=== PATIENT | female | born 1990 | race Two or more races ===

== ENCOUNTER → 2016-05-20 | Outpatient (CLI) | payer OTHER ==
[2016-05-20 15:00] LABS: HEMOGLOBIN 13.2 gm/dL (12.0-16.0); MEAN CELL VOLUME 83.4 FL (83-96); MEAN CORPUSCULAR HEMOGLOBIN 28.2 PG (28-34); MEAN CORPUSCULAR HGB CONC 33.8 g/dL (30-36); MEAN PLATELET VOLUME 9.7 FL (6.5-11.5); RED BLOOD COUNT 4.67 X10e (3.90-5.30); RED CELL DISTRIBUTION WIDTH 12.6 % (11.0-15.5); WHITE BLOOD COUNT 8.4 X10e3 (4.0-10.5)
[2016-05-20 15:22] LABS: ALKALINE PHOSPHATASE 53 U/L (32-92); ALT (SGPT) 29 U/L (10-40); AST (SGOT) 22 U/L (10-42); BILIRUBIN,TOTAL 0.6 mg/dL (0.2-2.0); BLOOD UREA NITROGEN 9 mg/dL (9-23); BUN/CREATININE RATIO 12.85; CARBON DIOXIDE 27 mmol/L (22-31); CHLORIDE 103 mmol/L (100-111); CHOLESTEROL 100 mg/dL (0-200); CREATININE SERUM 0.7 mg/dL (0.6-1.4); GLOM FILT RATE Estimated ABOVE60 mL/min (>60); GLUCOSE FASTING 108 mg/dL (70-110); HDL CHOLESTEROL 54 mg/dL (35-95); LDL CHOLESTEROL 36 mg/dL (-130); LDL/HDL RATIO 1 RATIO (0-4); POTASSIUM 3.4 mmol/L (3.5-5.1); PROTEIN TOTAL SERUM 7.3 g/dL (6.0-8.3); SODIUM 134 mmol/L (135-145); TRIGLYCERIDES 48 mg/dL (10-160)
== END | disposition home or self-care (01) ==
LOC: CLAB 14:25
PROVIDERS: Dermatology
DX: L70.0 Acne vulgaris (principal)
CPT/HCPCS: 36415; 80053; 80061; 84703; 85027

== ENCOUNTER → 2016-06-21 | Outpatient (CLI) | payer OTHER ==
[2016-06-21 16:56] LABS: HEMATOCRIT 42.6 % (35.0-45.0); HEMOGLOBIN 14.4 gm/dL (12.0-16.0); MEAN CELL VOLUME 83.8 FL (83-96); MEAN CORPUSCULAR HEMOGLOBIN 28.4 PG (28-34); MEAN CORPUSCULAR HGB CONC 33.9 g/dL (30-36); MEAN PLATELET VOLUME 8.9 FL (6.5-11.5); RED BLOOD COUNT 5.08 X10e (3.90-5.30); RED CELL DISTRIBUTION WIDTH 12.8 % (11.0-15.5); WHITE BLOOD COUNT 9.1 X10e3 (4.0-10.5)
[2016-06-21 17:46] LABS: ALBUMIN SERUM 3.8 g/dL (3.5-5.0); BILIRUBIN,TOTAL 0.4 mg/dL (0.2-2.0); BUN/CREATININE RATIO 18.57; CALCIUM SERUM 9.9 mg/dL (8.4-10.2); CREATININE SERUM 0.7 mg/dL (0.6-1.4); GLOM FILT RATE Estimated 117.9 mL/min (>60); PROTEIN TOTAL SERUM 7.4 g/dL (6.0-8.3)
== END | disposition home or self-care (01) ==
LOC: CLAB 16:33
PROVIDERS: Dermatology
DX: L70.0 Acne vulgaris (principal)
CPT/HCPCS: 36415; 80053; 80061; 84703; 85027

== ENCOUNTER → 2016-07-19 | Outpatient (CLI) | payer OTHER ==
[2016-07-19 18:02] LABS: HEMATOCRIT 39.6 % (35.0-45.0); HEMOGLOBIN 13.4 gm/dL (12.0-16.0); MEAN CORPUSCULAR HEMOGLOBIN 28.5 PG (28-34); MEAN CORPUSCULAR HGB CONC 33.9 g/dL (30-36); MEAN PLATELET VOLUME 9.3 FL (6.5-11.5); RED BLOOD COUNT 4.71 X10e (3.90-5.30); WHITE BLOOD COUNT 10.9 X10e3 (4.0-10.5)
[2016-07-19 18:29] LABS: ALBUMIN SERUM 3.7 g/dL (3.5-5.0); BILIRUBIN,TOTAL 0.6 mg/dL (0.2-2.0); BUN/CREATININE RATIO 17.14; CALCIUM SERUM 9.1 mg/dL (8.4-10.2); CREATININE SERUM 0.7 mg/dL (0.6-1.4); GLOM FILT RATE Estimated 117.9 mL/min (>60); POTASSIUM 3.8 mmol/L (3.5-5.1); PROTEIN TOTAL SERUM 7.1 g/dL (6.0-8.3)
== END | disposition home or self-care (01) ==
LOC: CLAB 17:39
PROVIDERS: Dermatology
DX: L70.0 Acne vulgaris (principal)
CPT/HCPCS: 36415; 80053; 80061; 84703; 85027

== ENCOUNTER → 2016-07-29 | Outpatient (CLI) | payer OTHER | END | disposition home or self-care (01) | LOC: CLAB 10:39 | DX: L70.0 Acne vulgaris (principal) | CPT/HCPCS: 84703 ==

== ENCOUNTER → 2016-08-28 | Outpatient (CLI) | payer OTHER ==
[2016-08-28 13:56] LABS: HEMOGLOBIN 14.4 gm/dL (12.0-16.0); MEAN CELL VOLUME 83.9 FL (83-96); MEAN CORPUSCULAR HEMOGLOBIN 28.2 PG (28-34); MEAN CORPUSCULAR HGB CONC 33.6 g/dL (30-36); MEAN PLATELET VOLUME 9.7 FL (6.5-11.5); RED BLOOD COUNT 5.13 X10e (3.90-5.30); RED CELL DISTRIBUTION WIDTH 12.9 % (11.0-15.5); WHITE BLOOD COUNT 6.8 X10e3 (4.0-10.5)
[2016-08-28 14:19] LABS: ALBUMIN SERUM 3.7 g/dL (3.5-5.0); BILIRUBIN,TOTAL 0.5 mg/dL (0.2-2.0); BUN/CREATININE RATIO 17.14; CALCIUM SERUM 9.5 mg/dL (8.4-10.2); CREATININE SERUM 0.7 mg/dL (0.6-1.4); GLOM FILT RATE Estimated 117.9 mL/min (>60); POTASSIUM 3.7 mmol/L (3.5-5.1); PROTEIN TOTAL SERUM 7.3 g/dL (6.0-8.3)
== END | disposition home or self-care (01) ==
LOC: CLAB 13:24
PROVIDERS: Dermatology
DX: L70.0 Acne vulgaris (principal)
CPT/HCPCS: 36415; 80053; 80061; 84703; 85027

== ENCOUNTER → 2016-09-27 | Outpatient (CLI) | payer OTHER ==
[2016-09-27 21:12] LABS: HEMATOCRIT 39.8 % (35.0-45.0); HEMOGLOBIN 13.7 gm/dL (12.0-16.0); MEAN CELL VOLUME 84.2 FL (83-96); MEAN CORPUSCULAR HEMOGLOBIN 28.9 PG (28-34); MEAN CORPUSCULAR HGB CONC 34.4 g/dL (30-36); RED BLOOD COUNT 4.73 X10e (3.90-5.30); RED CELL DISTRIBUTION WIDTH 12.2 % (11.0-15.5); WHITE BLOOD COUNT 8.2 X10e3 (4.0-10.5)
[2016-09-27 22:07] LABS: ALBUMIN SERUM 3.9 g/dL (3.5-5.0); BILIRUBIN,TOTAL 0.3 mg/dL (0.2-2.0); BUN/CREATININE RATIO 18.57; CALCIUM SERUM 9.6 mg/dL (8.4-10.2); CREATININE SERUM 0.7 mg/dL (0.6-1.4); GLOM FILT RATE Estimated 117.9 mL/min (>60); POTASSIUM 4.5 mmol/L (3.5-5.1); PROTEIN TOTAL SERUM 7.1 g/dL (6.0-8.3)
== END | disposition home or self-care (01) ==
LOC: CLAB 20:43
PROVIDERS: Dermatology
DX: L70.0 Acne vulgaris (principal)
CPT/HCPCS: 36415; 80053; 80061; 84703; 85027

== ENCOUNTER → 2016-10-29 | Outpatient (CLI) | payer OTHER | END | disposition home or self-care (01) | LOC: CLAB 18:10 | DX: Z32.00 Encounter for pregnancy test, result unknown (principal) | CPT/HCPCS: 36415; 84703 ==